=== PATIENT | male | born 1950 | race Caucasian/White ===

== ENCOUNTER → 2017-12-05 10:10 | Outpatient (CLI) | payer MEDICARE, SELFPAY ==
--- NOTE | 2017-12-05 | DI.RAD.S_ITS ---
PROCEDURE: XR HIP W PEL IF DONE LT MIN 4V INDICATIONS: BILATERAL HIP PAIN TECHNIQUE: AP pelvis with lateral view(s) of the bilateral hip(s). COMPARISON: None. FINDINGS: Bones: No acute fractures or dislocations. There is shortening of the left femoral neck suggesting remote subcapital fracture deformity. There may be remote healed fracture of the left anterior ramus as well. Advanced osteoarthritis of the left hip is apparent with prominent marginal bone spurs, subcortical cystic changes and sclerosis. There is mild degeneration of the right hip joint. No suspicious bony lesions. Soft tissues: The visualized bowel gas pattern is normal. No suspicious soft tissue calcifications. IMPRESSION: 1. Mild osteoarthritis right hip 2. Advanced osteoarthritis left hip with remote posttraumatic changes of the obturator ring and femoral neck. Dictated by: Daryl Chang M.D. on 12/05/2017 at 10:54 Approved by: Daryl Chang M.D. on 12/05/2017 at 10:58
== END ==
PROVIDERS: Visit Provider Student in an Organized Health Care Education/Training Program
DX: M16.0 Bilateral primary osteoarthritis of hip (principal); M25.552 Pain in left hip; M25.551 Pain in right hip
CPT/HCPCS: 73522

== ENCOUNTER → 2018-03-20 13:54 | Outpatient (CLI) | payer MEDICARE, SELFPAY | PROVIDERS: Visit Provider Student in an Organized Health Care Education/Training Program | DX: E29.1 Testicular hypofunction (principal); E07.9 Disorder of thyroid, unspecified; R29.890 Loss of height | CPT/HCPCS: 77080 ==

== ENCOUNTER → 2020-12-05 08:43 | Outpatient (CLI) | payer MEDICARE, SELFPAY ==
[2020-12-05 10:23] LABS: COVID19 -Nasal RAPID Negative (Negative)
== END ==
PROVIDERS: Visit Provider Physician Assistant
DX: Z01.812 Encounter for preprocedural laboratory examination (principal); Z20.822 Contact with and (suspected) exposure to COVID-19
CPT/HCPCS: 87635; C9803

== ENCOUNTER 2020-12-07 07:43 | Day surgery (SDC) | payer MEDICARE, SELFPAY ==
--- NOTE | 2020-12-06 19:48 | PM.PREOP ---
Pre-operative Note COVID-19 COVID-19 status: Negative Interval Note History & Physical reviewed/Exam performed by Physician: Yes Changes to H&P: No H&P completed within 30 days and has changed as indicated here:: Patient had a toothache 2 days ago on the right side and states that has resolved. He is afebrile and wishes to proceed with surgery.
--- NOTE | 2020-12-06 19:48 | PM.OP.1 ---
Operative Date/Time/Diagnoses Date of procedure: 12/07/20 Time of procedure: 09:45 Procedure & Clinicians Procedure: Preoperative diagnoses: 1. 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 2. History of traumatic brain injury 3. History of craniotomy 4. Memory loss 5. Depression 6. Hypertension Postoperative diagnoses: 1. Left cataract removed by phacoemulsification with placement of posterior chamber intraocular lens. Procedure: Phacoemulsification with posterior chamber intraocular lens implant Surgeon: Tahmina Muhammad MD Complications: None Specimen: None Implant: [id number] Blood loss: None Anesthesia: Retrobulbar with monitored standby Description of procedure: Patient presents with a complaint of decreased vision due to cataract which is affecting activities of daily living distance and near. His significant medical history including global amnesia craniotomy. He and his feels he needs improved vision to improve his quality. The patient wants surgery to improve vision. He understands the extra risk of surgery during the COVID-19 epidemic wishes to proceed. He was tested COVID 19 virus within 72 hours of procedure The patient was taken to the operating room and given IV sedation. A retrobulbar block consisting of 6 cc of 2% xylocaine without epinephrine mixed half and half with 0.5% Marcaine with 1 cc of hyaluronidase added is placed between the medial and lateral 1/3 of the inferior orbital rim. The eye is manually massaged for 30 sec, prepped using Betadine solution, and draped in the usual sterile fashion. Temporal approach was made, a 1 mm side-port incision was made 90? from the proposed clear corneal incision position. Phenylephrine 1.5% mixed with 1% xylocaine 0.2 cc was placed into the anterior chamber. Viscoat followed by Perlita was then placed. A 2.6 mm clear incision wiith a 2.6 mm blade was placed. A 360 degree capsulorrhexis style capsulotomy was then performed with a cystitome needle on a Healon. However, I felt that the inferior nasal quadrant may have a tag that could extend. Gentle Hydrodelineation and hydrodissection were performed. The phacoemulsification unit is introduced, and sculpting notice used to groove visualization of the inferior capsule was poor and there was a slight tag at the completion of the capsulorrhexis. Due to the worry of capsular extension extra viscoelastic was placed each time any instrument was placed into and out of the eye. The lens nucleus was then removed with divide and conquer. Epi nucleus is removed with epinuclear mode and irrigation aspiration was used to remove the peripheral cortex. The posterior capsule is not polished. All cortex was removed however I could see that there was a peripheral extension of the inferior capsulorrhexis though no vitreous was present. Therefore I felt it best to put a sulcus intra-ocular lens and. The intraocular lens is selected, inspected, power confirmed, and placed in the posterior chamber with the haptics in the sulcus . It was level and the pupil was constricted with Miochol. No vitreous presented The wound was stromally hydrated and tested for leaks, the patient was restless during the procedure there was none and it was left sutureless but Resure wound glue was placed to ensure no leaks. 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 Vigamox 0.1 cc was placed. into the anterior chamber. Kenalog 0.2 cc was placed in the superior subconjunctival space. Do Vigamox was placed and drop form on the eye was patched and shielded. The patient was stable and returned to the recovery room in excellent condition. Dictated by: Tahmina Muhammad MD Copy to: [facility] Same procedure as scheduled: Yes
[2020-12-07] MEDS: PROPARACAINE 0.5% OPHTH SOL 2 DROPS EYE-OP (08:10)
[2020-12-07] MEDS: CATARACT EYE COMPOUND (10 DROPS/SYRINGE) 3 DROPS EYE-OP (08:15)
[2020-12-07 08:22] VITALS: BMI 39.9
[2020-12-07 08:30] VITALS: BP 138/71; PULSE 84; RESP 16; TEMP 37.3; O2SAT 93
[2020-12-07] MEDS: CHONDROIDTIN/SOD HYALURONATE 1.05 ML SYRINGE INTRAOCULA ×2 (10:17→10:49)
[2020-12-07] MEDS: ERYTHROMYCIN OPHTH 1 GM OINT 1 APPLIC EYE-LEFT (10:18)
[2020-12-07] MEDS: PHENYLEPHRINE/LIDOCAINE VIAL (OR) 0.2 ML EYE-OP (10:18)
[2020-12-07] MEDS: MOXIFLOXACIN INJ 4 MG/0.8 ML VIAL 0.5 MG EYE-OP (10:18)
[2020-12-07] MEDS: HYALURONATE SODIUM 10 MG/ML SYRINGE INJ (10:18)
[2020-12-07] MEDS: TRIAMCINOLONE 50 MG/5 ML VIAL INJ (10:19)
[2020-12-07] MEDS: BALANCED SALT IRRIG SOLN NO.2 500 ML, EPINEPHrine 1 MG IRR (10:20)
[2020-12-07] MEDS: LIDOCAINE 2% 4 ML, BUPIVACAINE 0.5% (PF) 4 ML, HYALURONIDASE 150 UNIT INJ (10:21)
[2020-12-07] MEDS: ACETYLCHOLINE 1:1000 OPHTH 2 ML 2 DROP INTRAOCULA (11:17)
[2020-12-07 11:43] VITALS: BP 139/76; PULSE 73; RESP 14; TEMP 36.6; O2SAT 94
== END 2020-12-07 11:57 | disposition home or self-care (01) ==
LOC: OR 07:45
PROVIDERS: PCP Student in an Organized Health Care Education/Training Program; Referring Provider Ophthalmology; Visit Provider Ophthalmology
PROC: (CPT 66984; principal; 2020-12-07 09:45)
DX: H25.812 Combined forms of age-related cataract, left eye (principal); F32.9 Major depressive disorder, single episode, unspecified; I10 Essential (primary) hypertension
CPT/HCPCS: 66984; J0171; J3010; J3301; J3470

== ENCOUNTER → 2020-12-19 11:38 | Outpatient (CLI) | payer MEDICARE, SELFPAY ==
[2020-12-19 13:51] LABS: COVID19 -Nasal RAPID Negative (Negative)
== END ==
PROVIDERS: PCP Student in an Organized Health Care Education/Training Program; Visit Provider Physician Assistant
DX: Z01.812 Encounter for preprocedural laboratory examination (principal); Z20.822 Contact with and (suspected) exposure to COVID-19
CPT/HCPCS: 87635; C9803

== ENCOUNTER 2020-12-21 08:16 | Day surgery (SDC) | payer MEDICARE, SELFPAY ==
--- NOTE | 2020-12-20 18:53 | PM.PREOP ---
Pre-operative Note COVID-19 COVID-19 status: Negative Interval Note History & Physical reviewed/Exam performed by Physician: Yes Changes to H&P: No
--- NOTE | 2020-12-20 18:54 | PM.OP.1 ---
Operative Date/Time/Diagnoses Date of procedure: 12/21/20 Time of procedure: 10:45 Procedure & Clinicians Procedure: Preoperative diagnoses: 1. Right complex nuclear sclerotic and cortical cataract. 2. History of traumatic brain injury 3. Status post craniotomy 4. Depression 5. Memory loss Postoperative diagnoses: 1. Cataract removed by phacoemulsification with placement of posterior chamber intraocular lens . Procedure: Phacoemulsification with posterior chamber intraocular lens implant And use of capsular dye. Implant: [id number] Blood loss: None Anesthesia: Retrobulbar with monitored standby with conversion to laryngeal mask airway due to inability to tolerate the position of the procedure. Description of procedure: Patient presents with a complaint of decreased vision due to cataract which is affecting activities of daily living distance and near. 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 The patient wants surgery to improve vision. He understands the extra risk of surgery during the COVID-19 epidemic and wishes to proceed. He is tested active COVID 19 virus negative within 72 hours of the procedure. Due to difficulty staying still due to previous organic brain injury with local anesthesia capsular dye is suggested to improve the safety of the procedure The patient was taken to the operating room and given IV sedation. A retrobulbar block consisting of 6 cc of 2% xylocaine without epinephrine mixed half and half with 0.5% Marcaine with 1 cc of hyaluronidase added is placed between the medial and lateral 1/3 of the inferior orbital rim. The eye is manually massaged for 30 sec, prepped using Betadine solution, and draped in the usual sterile fashion. He has some persistent extraocular movement is unable to follow instructions to stay still and therefore a laryngeal mask airway was placed without difficulty to increase safety. Temporal approach was made, a 1 mm side-port incision was made 90? from the proposed clear corneal incision position. Phenylephrine 1.5% mixed with 1% xylocaine 0.2 cc was placed into the anterior chamber. An air bubble was placed followed by Visudyne capsular dye. Viscoat followed by Healon was then placed in the anterior chamber. A 2.6 mm clear incision with a 2.6 mm blade was placed. A 360 degree capsulorrhexis style capsulotomy was then performed with a cystitome needle on a Healon aided by the capsular dye. Hydrodelineation and hydrodissection were performed. The phacoemulsification unit is introduced, and sculpting notice used to groove the central lens. It is then removed in chopping mode. Epi nucleus is removed with epinuclear mode and irrigation aspiration was used to remove the peripheral cortex. The posterior capsule is polished. The intraocular lens is selected, inspected, power confirmed, and placed in the posterior chamber. The wound was stromally hydrated and tested for leaks, there was none and it was left sutureless. Vigamox 0.1 cc was placed into the anterior chamber. Kenalog 0.2 cc was placed in the superior subconjunctival space. A drop of antibiotic and was placed and the eye was patched and shielded. The patient was stable and returned to the recovery room in excellent condition. Dictated by: Tahmina Muhammad MD Copy to: [facility] Same procedure as scheduled: Yes
[2020-12-21 08:50] VITALS: BP 126/68; PULSE 66; RESP 20; TEMP 36.6; O2SAT 95; BMI 39.1
[2020-12-21] MEDS: PROPARACAINE 0.5% OPHTH SOL 2 DROPS EYE-OP (09:02)
[2020-12-21] MEDS: CATARACT EYE COMPOUND (10 DROPS/SYRINGE) 3 DROPS EYE-OP (09:03)
--- NOTE | 2020-12-21 10:15 | SUR.OPER ---
Supine on eye stretcher, head on extension cradle secured with tape. Arms tucked at sides with blanket. Pillow under knees.
[2020-12-21] MEDS: HYALURONATE SODIUM 10 MG/ML SYRINGE INJ (10:20)
[2020-12-21] MEDS: TRYPAN BLUE 0.5 ML SYRINGE INJ (10:20)
[2020-12-21] MEDS: CHONDROIDTIN/SOD HYALURONATE 1.05 ML SYRINGE INTRAOCULA (10:20)
[2020-12-21] MEDS: ERYTHROMYCIN OPHTH 1 GM OINT 1 APPLIC EYE-RIGHT (10:20)
[2020-12-21] MEDS: MOXIFLOXACIN INJ 4 MG/0.8 ML VIAL 0.5 MG EYE-OP (10:21)
[2020-12-21] MEDS: PHENYLEPHRINE/LIDOCAINE VIAL (OR) 0.2 ML EYE-OP (10:21)
[2020-12-21] MEDS: TRIAMCINOLONE 50 MG/5 ML VIAL INJ (10:21)
[2020-12-21] MEDS: BALANCED SALT IRRIG SOLN NO.2 500 ML, EPINEPHrine 1 MG IRR (10:21)
[2020-12-21] MEDS: LIDOCAINE 2% 4 ML, BUPIVACAINE 0.5% (PF) 4 ML, HYALURONIDASE 150 UNIT INJ (10:22)
[2020-12-21] MEDS: BUPIVACAINE 0.25% (PF) VIAL 4 ML INJ (10:24)
[2020-12-21 11:04] VITALS: BP 127/70; PULSE 67; RESP 16; TEMP 36.2; O2SAT 97
[2020-12-21 11:07] VITALS: BP 127/70; PULSE 65; RESP 16; O2SAT 97
[2020-12-21 11:15] VITALS: BP 130/68; PULSE 65; RESP 14; TEMP 36.8; O2SAT 93
--- NOTE | 2020-12-21 11:44 | SUR.PHASEII ---
1125 500 ml LR infused in the OR and PACU
== END 2020-12-21 11:31 | disposition home or self-care (01) ==
LOC: OR 08:18
PROVIDERS: PCP Student in an Organized Health Care Education/Training Program; Referring Provider Ophthalmology; Visit Provider Ophthalmology
PROC: (CPT 66984; principal; 2020-12-21 09:45)
DX: H25.811 Combined forms of age-related cataract, right eye (principal); F32.9 Major depressive disorder, single episode, unspecified
CPT/HCPCS: 66984; J0171; J3301; J3470